=== PATIENT | female | born 1975 ===

== ENCOUNTER → 2019-12-19 14:28 | Outpatient (BNVA) | payer OTHER, MEDICAID, SELFPAY | PROVIDERS: PCP Family Medicine; Visit Provider Physician Assistant | DX: M17.0 Bilateral primary osteoarthritis of knee (principal) | CPT/HCPCS: 20600; 20610 ==

== ENCOUNTER → 2021-09-29 09:04 | Outpatient (BNVA) | payer OTHER, MEDICAID, SELFPAY | PROVIDERS: PCP Family Medicine; Visit Provider Physician Assistant | DX: M17.0 Bilateral primary osteoarthritis of knee (principal) | CPT/HCPCS: 20610; J7323 ==

== ENCOUNTER → 2021-10-06 08:51 | Outpatient (BNVA) | payer OTHER, MEDICAID, SELFPAY | PROVIDERS: PCP Family Medicine; Visit Provider Physician Assistant | DX: M17.0 Bilateral primary osteoarthritis of knee (principal) | CPT/HCPCS: 20610; J7323 ==

== ENCOUNTER → 2021-10-13 08:58 | Outpatient (BNVA) | payer OTHER, MEDICAID, SELFPAY | PROVIDERS: PCP Family Medicine; Visit Provider Physician Assistant | DX: M17.0 Bilateral primary osteoarthritis of knee (principal) | CPT/HCPCS: 20610; J7323 ==

== ENCOUNTER 2023-03-28 14:36 | Outpatient (AMB) | payer OTHER, MEDICAID, SELFPAY ==
--- NOTE | 2023-03-28 15:26 | A.OFFVIS_ITS ---
Intake Intake Visit Reasons: OV - Bilateral Knee Euflexxa #1 Intake Note: Lulu a 47 year old female presents today for bilateral knee Euflexxa #1. Allergies motrin, ibuprofen Allergy (Unknown, Uncoded 03/28/23 15:27) unknown HPI OV - Bilateral Knee Euflexxa #1 HPI Details 47-year-old female who returns to the [facility] today for bilateral knee Euflexxa gel injection #1. PFSH Surgical History H/O carpal tunnel repair Family History Father No problems noted. Mother No problems noted. Son No problems noted. Daughter No problems noted. Social History Patient Tobacco Use Status: Former Tobacco user Current occupational status: employed Current occupation: credit cashier, rt hand Review of Systems Const All systems reviewed & are unremarkable except as noted in HPI and below Physical Exam Extrem Other: Bilateral knee: Skin intact, no erythema or joint effusion. Tenderness along the medial and lateral joint line. Full ROM with crepitus. Negative Juan Pablo?s. No ligamentous laxity. NVI. Office Procedures Joint Injection/Drain Joint Injection/Drain Details: bilat knee euflexxa Primary Site: right knee Secondary Site: left knee Prep: site was prepped using aseptic technique, ethochloride spray was applied and injection warnings given Injected: in the joint Approach Used: anterolateral Procedure: The patient tolerated the procedure well Coding 14792 - Glenohumeral/Tronchanteric Bursa/Intraarticular Procedure code (CPT) selection complete Assessment & Plan Assessment & Plan (1) Osteoarthritis of knees, bilateral: Code(s): M17.0 - Bilateral primary osteoarthritis of knee Qualifiers: Osteoarthritis type: primary Qualified Code(s): M17.0 - Bilateral primary osteoarthritis of knee Plan We discussed options today which include Euflexxa gel injection. They did consent to move forward with the Euflexxa gel injection #1, which was tolerated well. I recommended rest, ice and elevation and OTC anti-inflammatories PRN for discomfort. If symptoms persist or worsens over the next 6-8 weeks, patient will contact the office, otherwise she will return in 1 week for Euflexxa gel injection #2. Patient Instructions: Scribed for Sharla Johnson PA-C, by Seamus Guevara medical specialist, on 03/28/2023 at 3:00 PM EST. I, Sharla Johnson PA-C, have personally reviewed and agree with the information entered by the scribe. Coding Level of Care Code Procedure Only Diagnoses Primary osteoarthritis of both knees M17.0 Osteoarthritis type: primary CPT Codes Coding - Joint 7: 35193 - Glenohumeral/Tronchanteric Bursa/Intraarticular ([id number])
== END 2023-03-28 15:37 | disposition home or self-care (01) ==
PROVIDERS: PCP Family Medicine; Visit Provider Physician Assistant
DX: M17.0 Bilateral primary osteoarthritis of knee (principal)
CPT/HCPCS: 20610

== ENCOUNTER → 2023-03-28 14:36 | Outpatient (BNVA) | payer OTHER, MEDICAID, SELFPAY | PROVIDERS: PCP Family Medicine; Visit Provider Physician Assistant | DX: M17.0 Bilateral primary osteoarthritis of knee (principal) | CPT/HCPCS: 20610; J7323 ==

== ENCOUNTER 2023-04-04 15:05 | Outpatient (AMB) | payer OTHER, MEDICAID, SELFPAY ==
--- NOTE | 2023-04-04 15:11 | A.OFFVIS_ITS ---
Intake Intake Visit Reasons: OV - Bilateral Knee Euflexxa #2 Intake Note: Lulu a 47 year old female presents today for bilateral knee Euflexxa #2. Allergies motrin, ibuprofen Allergy (Unknown, Uncoded 04/04/23 15:11) unknown HPI OV - Bilateral Knee Euflexxa #2 HPI Details 47-year-old female who returns to the [facility] today for bilateral knee Euflexxa gel injection #2. PFSH Surgical History H/O carpal tunnel repair Family History Father No problems noted. Mother No problems noted. Son No problems noted. Daughter No problems noted. Social History Patient Tobacco Use Status: Former Tobacco user Current occupational status: employed Current occupation: gambling cashier, rt hand Review of Systems Const All systems reviewed & are unremarkable except as noted in HPI and below Physical Exam Extrem Other: Bilateral knee: Skin intact, no erythema or joint effusion. Tenderness along the medial and lateral joint line. Full ROM with crepitus. Negative Juan Pablo?s. No ligamentous laxity. NVI. Office Procedures Joint Injection/Drain Joint Injection/Drain Details: bilat knee euflexxa Secondary Site: left knee Prep: site was prepped using aseptic technique, ethochloride spray was applied and injection warnings given Injected: in the joint Approach Used: anterolateral Procedure: The patient tolerated the procedure well Coding 89371 - Glenohumeral/Tronchanteric Bursa/Intraarticular Procedure code (CPT) selection complete Assessment & Plan Assessment & Plan (1) Osteoarthritis of knees, bilateral: Code(s): M17.0 - Bilateral primary osteoarthritis of knee Qualifiers: Osteoarthritis type: primary Qualified Code(s): M17.0 - Bilateral primary osteoarthritis of knee Plan We discussed options today which include Euflexxa gel injection. They did consent to move forward with the bilateral knee Euflexxa gel injection #2, which was tolerated well. I recommended rest, ice and elevation and OTC anti- inflammatories PRN for discomfort. She will return next week for Euflexxa gel injection #3. Patient Instructions: Scribed for Sharla Johnson PA-C, by Seamus Guevara medical recruiter, on 04/04/2023 at 3:15 PM KIKI. Sharla Davila PA-C, have personally reviewed and agree with the information entered by the scribe. Coding Level of Care Code Procedure Only Diagnoses Primary osteoarthritis of both knees M17.0 Osteoarthritis type: primary CPT Codes Coding - Joint 7: 16330 - Glenohumeral/Tronchanteric Bursa/Intraarticular ([id number])
== END 2023-04-04 15:46 | disposition home or self-care (01) ==
PROVIDERS: PCP Family Medicine; Visit Provider Physician Assistant
DX: M17.0 Bilateral primary osteoarthritis of knee (principal)
CPT/HCPCS: 20610

== ENCOUNTER → 2023-04-04 15:05 | Outpatient (BNVA) | payer OTHER, MEDICAID, SELFPAY | PROVIDERS: PCP Family Medicine; Visit Provider Physician Assistant | DX: M17.0 Bilateral primary osteoarthritis of knee (principal) | CPT/HCPCS: 20610; J7323 ==

== ENCOUNTER 2023-04-11 15:26 | Outpatient (AMB) | payer OTHER, MEDICAID, SELFPAY ==
--- NOTE | 2023-04-11 15:33 | A.OFFVIS_ITS ---
Intake Intake Visit Reasons: OV - Bilateral Knee Euflexxa #3 Intake Note: Lulu a 47 year old female presents today for bilateral knee Euflexxa #3. Allergies motrin, ibuprofen Allergy (Unknown, Uncoded 04/11/23 15:34) unknown HPI OV - Bilateral Knee Euflexxa #3 HPI Details 47-year-old female who returns to the [facility] today for bilateral knee Euflexxa gel injection #3. PFSH Surgical History H/O carpal tunnel repair Family History Father No problems noted. Mother No problems noted. Son No problems noted. Daughter No problems noted. Social History Patient Tobacco Use Status: Former Tobacco user Current occupational status: employed Current occupation: checker cashier, rt hand Review of Systems Const All systems reviewed & are unremarkable except as noted in HPI and below Physical Exam Extrem Other: Bilateral knee: Skin intact, no erythema or joint effusion. Tenderness along the medial and lateral joint line. Full ROM with crepitus. Negative Juan Pablo?s. No ligamentous laxity. NVI. Office Procedures Joint Injection/Drain Joint Injection/Drain Details: euflexxa bilat knee Primary Site: right knee Secondary Site: left knee Prep: site was prepped using aseptic technique, ethochloride spray was applied and injection warnings given Injected: in the joint Approach Used: anterolateral Procedure: The patient tolerated the procedure well Coding 69636 - Glenohumeral/Tronchanteric Bursa/Intraarticular Procedure code (CPT) selection complete Assessment & Plan Assessment & Plan (1) Osteoarthritis of knees, bilateral: Code(s): M17.0 - Bilateral primary osteoarthritis of knee Qualifiers: Osteoarthritis type: primary Qualified Code(s): M17.0 - Bilateral primary osteoarthritis of knee Plan We discussed options today which include Euflexxa gel injection. They did consent to move forward with the bilateral knee Euflexxa gel injection #3, which was tolerated well. I recommended rest, ice and elevation and OTC anti- inflammatories PRN for discomfort. If symptoms persist or worsens over the next 6-8 weeks, patient will contact the office, otherwise follow-up as needed. Patient Instructions: Scribed for Sharla Johnson PA-C, by Seamus Guevara medical records specialist, on 04/11/2023 at 3:30 PM EST. Sharla Davila PA-C, have personally reviewed and agree with the information entered by the scribe. Coding Level of Care Code Procedure Only Diagnoses Primary osteoarthritis of both knees M17.0 Osteoarthritis type: primary CPT Codes Coding - Joint 7: 68352 - Glenohumeral/Tronchanteric Bursa/Intraarticular ([id number])
== END 2023-04-11 15:47 | disposition home or self-care (01) ==
PROVIDERS: PCP Family Medicine; Visit Provider Physician Assistant
DX: M17.0 Bilateral primary osteoarthritis of knee (principal)
CPT/HCPCS: 20610

== ENCOUNTER → 2023-04-11 15:26 | Outpatient (BNVA) | payer OTHER, MEDICAID, SELFPAY | PROVIDERS: PCP Family Medicine; Visit Provider Physician Assistant | DX: M17.0 Bilateral primary osteoarthritis of knee (principal) | CPT/HCPCS: 20610; J7323 ==

== ENCOUNTER 2024-01-30 14:36 | Outpatient (AMB) | payer OTHER, SELFPAY ==
--- NOTE | 2024-01-30 14:39 | A.OFFVIS_ITS ---
Vital Signs 01/30/24 14:40 Height 4 ft 11 in Weight 130 lb BMI 26.3 Intake Visit Reasons: OV- Discuss Gel Inj for coverage Intake Note: Lulu is a 48 year old female who presents today for a follow up of bilateral knees, 3rd Euflexxa injection on 04/11/23. Patient states injections provided her with relief until about a month ago. She is requesting to repeat injections. States she does not get any relief with cortisone injections. Allergies motrin, ibuprofen Allergy (Unknown, Uncoded 01/30/24 14:44) unknown Medication List - Last Reconciled 01/31/24 by Sharla Johnson PA-C acetaminophen ER 650 mg PO Q8H PRN albuterol sulfate 90 mcg/actuation 1 inh inhalation QID albuterol sulfate 90 mcg/actuation (Proair Digihaler) 1 inh inhalation Q4-6H PRN celecoxib (Celebrex) 200 mg PO BID 30 days cetirizine 10 mg PO DAILY PRN fluticasone propionate 110 mcg/actuation (Flovent HFA) 1 puff inhalation BID gabapentin 100 mg PO DAILY gabapentin 300 mg PO BEDTIME montelukast 10 mg PO QPM omeprazole 20 mg PO DAILY prazosin 0 mg PO sertraline 50 mg PO DAILY HPI HPI OV- Discuss Gel Inj for coverage: Details: The patient is a 48-year-old female who presents to discuss about gel injection. She states has previously followed for bilateral knee pain and received cortisone injections, which did not help her. She received Euflexxa injection on 04/11/23 for the bilateral knee, which has provided good relief of her symptoms until about a month ago. She was able to do her activities of daily living. She cannot tolerate ibuprofen as it gives her upset stomach. She is interested in getting a repeat Euflexxa injection. [facility] Surgical History H/O carpal tunnel repair Family History Father No problems noted. Mother No problems noted. Son No problems noted. Daughter No problems noted. Social History Patient Tobacco Use Status: Former Tobacco user Current occupational status: employed Current occupation: assistant head cashier, rt hand Review of Systems Const All systems reviewed & are unremarkable except as noted in HPI and below Physical Exam Vital Signs: BMI result Body Mass Index 26.3 Extrem Other: Bilateral knee: Skin intact, no erythema or joint effusion. Tenderness along the medial and lateral joint line. Full ROM with crepitus. Negative Juan Pablo?s. No ligamentous laxity. NVI. Assessment & Plan Assessment & Plan (1) Osteoarthritis of knees, bilateral: Code(s): M17.0 - Bilateral primary osteoarthritis of knee Category: Medical Qualifiers: Osteoarthritis type: primary Qualified Code(s): M17.0 - Bilateral primary osteoarthritis of knee Plan We are going to obtain prior authorization for bilateral Euflexxa injections as she has had great success with these in the past. We will contact her once these are approved. I did send a Prescription for Celebrex to the pharmacy which she will take twice a day. We will see her back once the gel injections are approved. Scribed for Sharla Johnson PA-C, by James Griggs medical data analyst, on 03/31/2023 at 15:15 PM KIKI. Sharla Davila PA-C, have personally reviewed and agree with the information entered by the scribe. Medications: New celecoxib (Celebrex) 200 mg PO BID 60 caps 3RF 30 days Coding Level of Care Code Est Pt Level 3 (98532) Complex EM visit Add On G2211 Diagnoses Primary osteoarthritis of both knees M17.0 Osteoarthritis type: primary
[2024-01-30 14:40] VITALS: BMI 26.3
== END 2024-01-30 15:03 | disposition home or self-care (01) ==
PROVIDERS: PCP Family Medicine; Visit Provider Physician Assistant
DX: M17.0 Bilateral primary osteoarthritis of knee (principal)
CPT/HCPCS: 99213